=== PATIENT | male | born 1955 | race Caucasian/White ===

== ENCOUNTER 2016-09-27 15:56 | Outpatient (CLI) ==
[2016-09-27 17:11] LABS: PROTHROMBIN TIME 39.5 SEC (9.3-11.0)
== END 2016-09-27 15:57 | disposition home or self-care (01) ==
LOC: LAB 15:56
PROVIDERS: ATTEND General Practice
DX: Z51.81 Encounter for therapeutic drug level monitoring (principal); Z79.01 Long term (current) use of anticoagulants; I82.409 Acute embolism and thrombosis of unspecified deep veins of unspecified lower extremity; Z95.2 Presence of prosthetic heart valve; I35.0 Nonrheumatic aortic (valve) stenosis
CPT/HCPCS: 36415; 85610

== ENCOUNTER 2016-10-03 15:10 | Outpatient (CLI) ==
[2016-10-03 15:56] LABS: PROTHROMBIN TIME 54.9 SEC (9.3-11.0)
== END 2016-10-03 15:11 | disposition home or self-care (01) ==
LOC: LAB 15:10
PROVIDERS: ATTEND General Practice
DX: I35.0 Nonrheumatic aortic (valve) stenosis (principal); Z95.2 Presence of prosthetic heart valve
CPT/HCPCS: 36415; 85610

== ENCOUNTER 2016-10-05 14:41 | Outpatient (CLI) | payer OTHER ==
[2016-10-05 15:29] LABS: PROTHROMBIN TIME 26.6 SEC (9.3-11.0)
== END 2016-10-05 14:42 | disposition home or self-care (01) ==
LOC: LAB 14:41
PROVIDERS: ATTEND General Practice
DX: Z51.81 Encounter for therapeutic drug level monitoring (principal); Z79.01 Long term (current) use of anticoagulants; I82.409 Acute embolism and thrombosis of unspecified deep veins of unspecified lower extremity
CPT/HCPCS: 36415; 85610

== ENCOUNTER 2016-11-16 12:53 | Outpatient (CLI) | END 2016-11-16 12:54 | disposition home or self-care (01) | LOC: LAB 12:53 | PROVIDERS: ATTEND General Practice | DX: Z51.81 Encounter for therapeutic drug level monitoring (principal); Z79.01 Long term (current) use of anticoagulants; I82.409 Acute embolism and thrombosis of unspecified deep veins of unspecified lower extremity | CPT/HCPCS: 36415; 85610 ==

== ENCOUNTER 2016-11-22 16:22 | Outpatient (CLI) ==
[2016-11-22 17:14] LABS: PROTHROMBIN TIME 35.9 SEC (9.3-11.0)
== END 2016-11-22 16:23 | disposition home or self-care (01) ==
LOC: LAB 16:22
PROVIDERS: ATTEND General Practice
DX: Z51.81 Encounter for therapeutic drug level monitoring (principal); Z79.01 Long term (current) use of anticoagulants; I82.409 Acute embolism and thrombosis of unspecified deep veins of unspecified lower extremity
CPT/HCPCS: 36415; 85610

== ENCOUNTER 2017-01-23 12:18 | Outpatient (CLI) | payer OTHER ==
[2017-01-23 13:06] LABS: PROTHROMBIN TIME 34.5 SEC (9.3-11.0)
== END 2017-01-23 12:19 | disposition home or self-care (01) ==
LOC: LAB 12:18
PROVIDERS: ATTEND General Practice
DX: Z51.81 Encounter for therapeutic drug level monitoring (principal); Z79.01 Long term (current) use of anticoagulants
CPT/HCPCS: 36415; 85610

== ENCOUNTER 2017-03-17 14:03 | Outpatient (CLI) | END 2017-03-17 14:04 | disposition home or self-care (01) | LOC: LAB 14:03 | PROVIDERS: ATTEND General Practice | DX: Z95.2 Presence of prosthetic heart valve (principal) | CPT/HCPCS: 36415; 85610 ==

== ENCOUNTER 2017-04-27 15:15 | Outpatient (CLI) ==
[2017-04-27 15:31] LABS: BILIRUBIN,URINE 1+ (NEGATIVE); KETONES,URINE 1+ (NEGATIVE); LEUKOCYTE ESTERASE ,URINE Negative (NEGATIVE); NITRITE,URINE Negative (NEGATIVE); PROTEIN,URINE 1+ (NEGATIVE); URINE, BLOOD Trace-intact (NEGATIVE)
[2017-04-27 15:42] LABS: BASOPHILS % (AUTO) 0.6 % (0.0-3.0); EOSINOPHILS # (AUTO) 0.1 K/ul (0.0-0.7); EOSINOPHILS % (AUTO) 1.9 % (0.0-7.0); HEMATOCRIT 41.1 % (42.0-52.0); HEMOGLOBIN 15.3 g/dl (14.0-18.0); IMMATURE GRANULOCYTE % (AUTO) 0.4 % (0.0-5.0); LYMPHOCYTES # (AUTO) 1.7 K/uL (0.60-3.4); LYMPHOCYTES % (AUTO) 23.6 (10.0-50.0); MEAN CORPUSCULAR HEMOGLOBIN 33.6 pg (27.0-31.0); MEAN CORPUSCULAR HGB CONC 37.2 (31.8-35.4); MEAN CORPUSCULAR VOLUME 90.3 fl (80.0-94.0); MONOCYTES # (AUTO) 0.6 K/uL (0.4-2.0); MONOCYTES % (AUTO) 9.2 (0-10); NEUTROPHILS # (AUTO) 4.5 K/ul (2.0-6.9); NEUTROPHILS % (AUTO) 64.3; PLATELET COUNT 211 10^3/uL (140-440); RED BLOOD COUNT 4.55 10^6/ul (4.70-6.10); WHITE BLOOD COUNT 6.99 K/ul (4.2-10.2)
[2017-04-27 15:44] LABS: ADD URINE MICROSCOPIC YES
[2017-04-27 15:45] LABS: BACTERIA,URINE TRACE (NOT PRESENT)
[2017-04-27 15:49] LABS: ALBUMIN 3.8 g/dL (3.4-5.0); ALBUMIN/GLOBULIN RATIO 1.15; ANION GAP 12.9; BILIRUBIN,TOTAL 0.58 mg/dL (0.00-1.20); BUN/CREATININE RATIO 7.64; CALCIUM 9.4 mg/dL (8.2-10.2); CHOL/HDL RATIO 3.5 (4.5-6.4); CREATININE 1.57 mg/dL (0.60-1.10); POTASSIUM 2.9 mmol/L (3.5-5.1); TOTAL PROTEIN 7.1 g/dL (5.8-8.1)
[2017-04-27 16:00] LABS: PROTHROMBIN TIME 53.8 SEC (9.3-11.0)
== END 2017-04-27 15:16 | disposition home or self-care (01) ==
LOC: LAB 15:15
PROVIDERS: ATTEND General Practice
DX: E78.5 Hyperlipidemia, unspecified (principal); I35.0 Nonrheumatic aortic (valve) stenosis; Z95.2 Presence of prosthetic heart valve; Z72.0 Tobacco use; Z79.899 Other long term (current) drug therapy
CPT/HCPCS: 36415; 80053; 80061; 81001; 85025; 85610

== ENCOUNTER 2017-04-29 10:04 | Outpatient (CLI) ==
[2017-04-29 12:45] LABS: PROTHROMBIN TIME 58.8 SEC (9.3-11.0)
== END 2017-04-29 10:05 | disposition home or self-care (01) ==
LOC: LAB 10:04
PROVIDERS: ATTEND General Practice
DX: Z95.2 Presence of prosthetic heart valve (principal)
CPT/HCPCS: 36415; 85610

== ENCOUNTER 2017-05-01 14:17 | Outpatient (CLI) ==
[2017-05-01 15:06] LABS: PROTHROMBIN TIME 44.8 SEC (9.3-11.0)
== END 2017-05-01 14:18 | disposition home or self-care (01) ==
LOC: LAB 14:17
PROVIDERS: ATTEND General Practice
DX: Z95.2 Presence of prosthetic heart valve (principal)
CPT/HCPCS: 36415; 85610

== ENCOUNTER 2017-05-03 15:53 | Outpatient (CLI) ==
[2017-05-03 16:21] LABS: PROTHROMBIN TIME 15.1 SEC (9.3-11.0)
== END 2017-05-03 15:54 | disposition home or self-care (01) ==
LOC: LAB 15:53
PROVIDERS: ATTEND General Practice
DX: Z95.2 Presence of prosthetic heart valve (principal)
CPT/HCPCS: 36415; 85610

== ENCOUNTER 2017-05-10 19:48 | Outpatient (CLI) | payer OTHER ==
[2017-05-10 20:13] LABS: PROTHROMBIN TIME 23.2 SEC (9.3-11.0)
== END 2017-05-10 19:49 | disposition home or self-care (01) ==
LOC: LAB 19:48
PROVIDERS: ATTEND General Practice
DX: Z95.2 Presence of prosthetic heart valve (principal)
CPT/HCPCS: 36415; 85610

== ENCOUNTER 2017-05-24 10:21 | Outpatient (CLI) ==
[2017-05-24 11:06] LABS: PROTHROMBIN TIME 31.3 SEC (9.3-11.0)
== END 2017-05-24 10:22 | disposition home or self-care (01) ==
LOC: LAB 10:21
PROVIDERS: ATTEND General Practice
DX: Z95.2 Presence of prosthetic heart valve (principal)
CPT/HCPCS: 36415; 85610

== ENCOUNTER 2017-05-27 17:45 | Outpatient (CLI) | END 2017-05-27 17:46 | disposition home or self-care (01) | LOC: LAB 17:45 | PROVIDERS: ATTEND General Practice | DX: Z95.2 Presence of prosthetic heart valve (principal) | CPT/HCPCS: 36415; 85610 ==

== ENCOUNTER 2017-06-01 12:57 | Outpatient (CLI) ==
[2017-06-01 13:46] LABS: PROTHROMBIN TIME 17.9 SEC (9.3-11.0)
== END 2017-06-01 12:58 | disposition home or self-care (01) ==
LOC: LAB 12:57
PROVIDERS: ATTEND General Practice
DX: Z51.81 Encounter for therapeutic drug level monitoring (principal); Z79.01 Long term (current) use of anticoagulants; I82.409 Acute embolism and thrombosis of unspecified deep veins of unspecified lower extremity
CPT/HCPCS: 36415; 85610

== ENCOUNTER 2017-06-16 12:45 | Outpatient (CLI) ==
[2017-06-16 13:18] LABS: ALBUMIN 4.3 g/dL (3.4-5.0); ANION GAP 16.3; BUN/CREATININE RATIO 15.15; CALCIUM 10.1 mg/dL (8.2-10.2); CHOL/HDL RATIO 4.6 (4.5-6.4); CREATININE 0.99 mg/dL (0.60-1.10); PHOSPHORUS 3.4 mg/dL (2.3-3.7); POTASSIUM 3.3 mmol/L (3.5-5.1)
[2017-06-16 13:23] LABS: PROTHROMBIN TIME 32.3 SEC (9.3-11.0)
[2017-06-16 14:14] LABS: BILIRUBIN,URINE Negative (NEGATIVE); KETONES,URINE Negative (NEGATIVE); LEUKOCYTE ESTERASE ,URINE Negative (NEGATIVE); NITRITE,URINE Negative (NEGATIVE); PH,URINE 6.5 (5-9); PROTEIN,URINE Negative (NEGATIVE); URINE, BLOOD Trace-intact (NEGATIVE)
[2017-06-16 14:27] LABS: ADD URINE MICROSCOPIC YES
== END 2017-06-16 12:46 | disposition home or self-care (01) ==
LOC: LAB 12:45
PROVIDERS: ATTEND General Practice
DX: Z51.81 Encounter for therapeutic drug level monitoring (principal); Z79.01 Long term (current) use of anticoagulants; I82.409 Acute embolism and thrombosis of unspecified deep veins of unspecified lower extremity; R31.9 Hematuria, unspecified; E78.5 Hyperlipidemia, unspecified; E87.6 Hypokalemia
CPT/HCPCS: 36415; 80061; 80069; 81001; 85610

== ENCOUNTER 2017-06-21 16:01 | Outpatient (CLI) | payer OTHER ==
[2017-06-21 16:36] LABS: PROTHROMBIN TIME 38.1 SEC (9.3-11.0)
== END 2017-06-21 16:02 | disposition home or self-care (01) ==
LOC: LAB 16:01
PROVIDERS: ATTEND General Practice
DX: Z51.81 Encounter for therapeutic drug level monitoring (principal); Z79.01 Long term (current) use of anticoagulants; I82.409 Acute embolism and thrombosis of unspecified deep veins of unspecified lower extremity
CPT/HCPCS: 36415; 85610

== ENCOUNTER 2017-08-07 13:35 | Outpatient (CLI) ==
[2017-08-07 14:51] LABS: PROTHROMBIN TIME 65.1 SEC (9.3-11.0)
== END 2017-08-07 13:36 | disposition home or self-care (01) ==
LOC: LAB 13:35
PROVIDERS: ATTEND General Practice
DX: Z51.81 Encounter for therapeutic drug level monitoring (principal); Z79.01 Long term (current) use of anticoagulants; I82.409 Acute embolism and thrombosis of unspecified deep veins of unspecified lower extremity
CPT/HCPCS: 36415; 85610

== ENCOUNTER 2017-08-08 13:20 | Outpatient (CLI) ==
[2017-08-08 13:31] LABS: BASOPHILS % (AUTO) 0.3 % (0.0-3.0); EOSINOPHILS # (AUTO) 0.2 K/ul (0.0-0.7); EOSINOPHILS % (AUTO) 1.6 % (0.0-7.0); HEMOGLOBIN 13.9 g/dl (14.0-18.0); IMMATURE GRANULOCYTE % (AUTO) 0.5 % (0.0-5.0); LYMPHOCYTES # (AUTO) 1.4 K/uL (0.60-3.4); LYMPHOCYTES % (AUTO) 12.3 (10.0-50.0); MEAN CORPUSCULAR HGB CONC 35.6 (31.8-35.4); MEAN CORPUSCULAR VOLUME 95.4 fl (80.0-94.0); MONOCYTES % (AUTO) 8.5 (0-10); NEUTROPHILS # (AUTO) 8.6 K/ul (2.0-6.9); NEUTROPHILS % (AUTO) 76.8; PLATELET COUNT 249 10^3/uL (140-440); RED BLOOD COUNT 4.09 10^6/ul (4.70-6.10); WHITE BLOOD COUNT 11.18 K/ul (4.2-10.2)
== END 2017-08-08 13:21 | disposition home or self-care (01) ==
LOC: LAB 13:20
PROVIDERS: ATTEND Emergency Medicine
DX: M54.5 Low back pain (principal); I35.0 Nonrheumatic aortic (valve) stenosis
CPT/HCPCS: 36415; 85025

== ENCOUNTER 2017-08-30 12:47 | Outpatient (CLI) | payer OTHER ==
[2017-08-30 13:07] LABS: PROTHROMBIN TIME 38.2 SEC (9.3-11.0)
== END 2017-08-30 12:48 | disposition home or self-care (01) ==
LOC: LAB 12:47
PROVIDERS: ATTEND General Practice
DX: Z51.81 Encounter for therapeutic drug level monitoring (principal); Z79.01 Long term (current) use of anticoagulants; I82.409 Acute embolism and thrombosis of unspecified deep veins of unspecified lower extremity
CPT/HCPCS: 36415; 85610

== ENCOUNTER 2017-09-13 10:31 | Outpatient (CLI) ==
[2017-09-13 12:32] LABS: PROTHROMBIN TIME 40.1 SEC (9.3-11.0)
== END 2017-09-13 10:32 | disposition home or self-care (01) ==
LOC: LAB 10:31
PROVIDERS: ATTEND General Practice
DX: Z51.81 Encounter for therapeutic drug level monitoring (principal); Z79.01 Long term (current) use of anticoagulants; I82.409 Acute embolism and thrombosis of unspecified deep veins of unspecified lower extremity
CPT/HCPCS: 36415; 85610

== ENCOUNTER 2017-09-16 09:50 | Outpatient (CLI) | END 2017-09-16 09:51 | disposition home or self-care (01) | LOC: LAB 09:50 | PROVIDERS: ATTEND General Practice | DX: Z79.899 Other long term (current) drug therapy (principal); Z95.2 Presence of prosthetic heart valve | CPT/HCPCS: 36415; 85025 ==

== ENCOUNTER 2017-10-10 16:47 | Outpatient (CLI) ==
--- NOTE | 2017-10-10 22:13 | DI ---
EXAM: PA and lateral views of the chest. HISTORY: Other specified symptoms and signs involving the circulatory and respiratory systems. FINDINGS: There are multiple sternotomy wires. The cardiac silhouette and pulmonary vasculature are within normal limits. The costophrenic angles are clear. No infiltrate or consolidation. There are calcified granulomas. Impression: No acute cardiopulmonary disease.
--- NOTE | 2017-10-10 22:32 | DI ---
EXAM: Two views of the right hip. HISTORY: Pain in right hip. No history of trauma. FINDINGS: The bones are intact with no evidence of fracture. There is a 2.3 cm calcification project ing over the symphysis pubis. The joint spaces are maintained. Impression: Negative right hip.
== END 2017-10-10 16:48 | disposition home or self-care (01) ==
LOC: RAD 16:47
PROVIDERS: ATTEND General Practice
DX: R09.89 Other specified symptoms and signs involving the circulatory and respiratory systems (principal); M25.551 Pain in right hip

== ENCOUNTER 2017-11-07 15:24 | Outpatient (CLI) | payer OTHER | END 2017-11-07 15:25 | disposition home or self-care (01) | LOC: LAB 15:24 | PROVIDERS: ATTEND General Practice | DX: Z51.81 Encounter for therapeutic drug level monitoring (principal); Z79.01 Long term (current) use of anticoagulants; I82.409 Acute embolism and thrombosis of unspecified deep veins of unspecified lower extremity | CPT/HCPCS: 36415; 85610 ==

== ENCOUNTER 2017-11-10 11:13 | Outpatient (CLI) | END 2017-11-10 11:14 | disposition home or self-care (01) | LOC: FCC-LAB 11:13 | PROVIDERS: ATTEND General Practice | DX: E78.5 Hyperlipidemia, unspecified (principal); I35.0 Nonrheumatic aortic (valve) stenosis; Z72.0 Tobacco use; Z79.899 Other long term (current) drug therapy; Z95.2 Presence of prosthetic heart valve | CPT/HCPCS: 36415; 80053; 80061; 81001; 85025; 85610 ==

== ENCOUNTER 2017-11-13 13:57 | Outpatient (CLI) | END 2017-11-13 13:58 | disposition home or self-care (01) | LOC: LAB 13:57 | PROVIDERS: ATTEND General Practice | DX: Z51.81 Encounter for therapeutic drug level monitoring (principal); Z79.01 Long term (current) use of anticoagulants; I82.409 Acute embolism and thrombosis of unspecified deep veins of unspecified lower extremity | CPT/HCPCS: 36415; 85610 ==

== ENCOUNTER 2017-11-20 10:17 | Outpatient (CLI) | END 2017-11-20 10:18 | disposition home or self-care (01) | LOC: LAB 10:17 | PROVIDERS: ATTEND General Practice | DX: Z51.81 Encounter for therapeutic drug level monitoring (principal); Z79.01 Long term (current) use of anticoagulants; I82.409 Acute embolism and thrombosis of unspecified deep veins of unspecified lower extremity | CPT/HCPCS: 36415; 85610 ==

== ENCOUNTER 2017-11-28 12:20 | Outpatient (CLI) | END 2017-11-28 12:21 | disposition home or self-care (01) | LOC: LAB 12:20 | PROVIDERS: ATTEND General Practice | DX: Z51.81 Encounter for therapeutic drug level monitoring (principal); Z79.01 Long term (current) use of anticoagulants; I82.409 Acute embolism and thrombosis of unspecified deep veins of unspecified lower extremity | CPT/HCPCS: 36415; 85610 ==

== ENCOUNTER 2017-12-12 16:27 | Outpatient (CLI) | END 2017-12-12 16:28 | disposition home or self-care (01) | LOC: FCC-LAB 16:27 | PROVIDERS: ATTEND General Practice | DX: E87.6 Hypokalemia (principal); Z95.2 Presence of prosthetic heart valve | CPT/HCPCS: 36415; 80069; 85610 ==

== ENCOUNTER 2017-12-18 14:13 | Outpatient (CLI) | END 2017-12-18 14:14 | disposition home or self-care (01) | LOC: LAB 14:13 | PROVIDERS: ATTEND General Practice | DX: Z95.2 Presence of prosthetic heart valve (principal) | CPT/HCPCS: 36415; 85610 ==

== ENCOUNTER 2017-12-26 13:18 | Outpatient (CLI) | END 2017-12-26 13:19 | disposition home or self-care (01) | LOC: LAB 13:18 | PROVIDERS: ATTEND General Practice | DX: E78.5 Hyperlipidemia, unspecified (principal); I35.0 Nonrheumatic aortic (valve) stenosis; Z79.01 Long term (current) use of anticoagulants; Z79.899 Other long term (current) drug therapy; Z95.2 Presence of prosthetic heart valve; Z12.5 Encounter for screening for malignant neoplasm of prostate; Z72.0 Tobacco use | CPT/HCPCS: 36415; 80053; 80061; 81001; 85025 ==

== ENCOUNTER 2018-01-01 15:52 | Outpatient (CLI) | payer OTHER | END 2018-01-01 15:53 | disposition home or self-care (01) | LOC: LAB 15:52 | PROVIDERS: ATTEND General Practice | DX: Z95.2 Presence of prosthetic heart valve (principal) | CPT/HCPCS: 36415; 85610 ==

== ENCOUNTER 2018-01-09 10:42 | Outpatient (CLI) | END 2018-01-09 10:43 | disposition home or self-care (01) | LOC: LAB 10:42 | PROVIDERS: ATTEND General Practice | DX: Z95.2 Presence of prosthetic heart valve (principal) | CPT/HCPCS: 36415; 85610 ==

== ENCOUNTER 2018-01-15 09:41 | Outpatient (CLI) | END 2018-01-15 09:42 | disposition home or self-care (01) | LOC: FCC-LAB 09:41 | PROVIDERS: ATTEND General Practice | DX: Z95.2 Presence of prosthetic heart valve (principal); Z79.899 Other long term (current) drug therapy | CPT/HCPCS: 36415; 80306; 85610 ==

== ENCOUNTER 2018-04-05 14:28 | Outpatient (CLI) | payer OTHER | END 2018-04-05 14:29 | disposition home or self-care (01) | LOC: FCC-LAB 14:28 | PROVIDERS: ATTEND General Practice | DX: Z95.2 Presence of prosthetic heart valve (principal) | CPT/HCPCS: 36415; 85610 ==

== ENCOUNTER 2018-04-07 16:39 | Outpatient (CLI) | END 2018-04-07 16:40 | disposition home or self-care (01) | LOC: LAB 16:39 | PROVIDERS: ATTEND General Practice | DX: Z95.2 Presence of prosthetic heart valve (principal) | CPT/HCPCS: 36415; 85610 ==

== ENCOUNTER 2018-04-10 11:01 | Outpatient (CLI) | END 2018-04-10 11:02 | disposition home or self-care (01) | LOC: LAB 11:01 | PROVIDERS: ATTEND General Practice | DX: Z95.2 Presence of prosthetic heart valve (principal) | CPT/HCPCS: 36415; 85610 ==

== ENCOUNTER 2018-04-16 14:49 | Outpatient (CLI) | END 2018-04-16 14:50 | disposition home or self-care (01) | LOC: FCC-LAB 14:49 | PROVIDERS: ATTEND General Practice | DX: Z95.2 Presence of prosthetic heart valve (principal) | CPT/HCPCS: 36415; 85610 ==

== ENCOUNTER 2018-06-11 14:43 | Outpatient (CLI) ==
--- NOTE | 2018-06-12 08:00 | DI ---
EXAM: PA and lateral views of the chest HISTORY: Cough. COMPARISON: Chest x-ray 10/10/2017 FINDINGS: The cardiomediastinal silhouette is unchanged with intact sternotomy wires. There is no p neumothorax or pleural effusion. There is no consolidation, nodule or mass. The osseous structures demonstrate multilevel degenerative disease. IMPRESSION: 1. No acute cardiopulmonary process or consolidation. 2. No significant interval change.
== END 2018-06-11 14:44 | disposition home or self-care (01) ==
LOC: LAB 14:43
PROVIDERS: ATTEND General Practice
DX: R05 Cough (principal); Z95.2 Presence of prosthetic heart valve
CPT/HCPCS: 36415; 85610

== ENCOUNTER 2018-10-16 11:51 | Outpatient (CLI) | END 2018-10-16 11:52 | disposition home or self-care (01) | LOC: RHC-LAB 11:51 | PROVIDERS: ATTEND General Practice | DX: I35.0 Nonrheumatic aortic (valve) stenosis (principal); E78.5 Hyperlipidemia, unspecified; M54.5 Low back pain; Z95.2 Presence of prosthetic heart valve; Z79.899 Other long term (current) drug therapy | CPT/HCPCS: 36415; 80053; 80061; 81001; 83036; 84443; 85025; 85610 ==

== ENCOUNTER 2018-12-19 16:19 | Outpatient (CLI) | payer OTHER | END 2018-12-19 16:20 | disposition home or self-care (01) | LOC: RHC-LAB 16:19 | PROVIDERS: ATTEND General Practice | DX: Z79.899 Other long term (current) drug therapy (principal); R19.06 Epigastric swelling, mass or lump | CPT/HCPCS: 80306 ==

== ENCOUNTER 2018-12-19 16:31 | Outpatient (CLI) | payer OTHER ==
--- NOTE | 2018-12-19 17:24 | US ---
EXAM: Ultrasound abdomen complete. HISTORY: Abdominal swelling with lump in the left upper quadrant TECHNIQUE: Ultrasound and limited doppler evaluation of the enitre abdomen was performed. Dedicated views of the area of concern COMPARISON: Abdominal ultrasound same day FINDINGS: The liver is mildly heterogeneous in echogenicity and measures 9.4 cm in length. The raymon l vein is patent. The gallbladder demonstrates no stones or sludge. Gallbladder wall measures 0.2 c m. Common bile duct measures 0.6 cm in diameter. The pancreas is unremarkable. The aorta and IVC a re poorly visualized due to bowel gas. The spleen is normal in echogenicity and measures 9.3 cm in l ength. The right kidney measures 9.2 x 3.9 x 3.6 cm with cortical thickness of 0.8 cm. There is normal echo genicity and Doppler flow. There is no visualized stone, cyst or hydronephrosis. The left kidney measures 9.6 x 3.8 x 4.4 cm with renal cortical thickness of 1.0 cm. There is gladys l echogenicity and color Doppler flow. There is no stone, cyst or hydronephrosis. The urinary bladder is obscured due to bowel gas. The palpable area in the left upper quadrant demonstrated no visualized mass or abnormality. IMPRESSION: 1. No visualized mass in the area of concern. 2. No additional sonographic abnormality.
--- NOTE | 2018-12-20 13:05 | US ---
PRELIMINARY Please see same day report from accession number [id number]
== END 2018-12-19 16:32 | disposition home or self-care (01) ==
LOC: RAD 16:31
PROVIDERS: ATTEND General Practice
DX: R19.06 Epigastric swelling, mass or lump (principal)

== ENCOUNTER 2019-01-31 14:37 | Outpatient (CLI) | END 2019-01-31 14:38 | disposition home or self-care (01) | LOC: RHC-LAB 14:37 | PROVIDERS: ATTEND General Practice | DX: Z95.2 Presence of prosthetic heart valve (principal); Z79.899 Other long term (current) drug therapy | CPT/HCPCS: 36415; 85610 ==

== ENCOUNTER 2019-02-08 14:27 | Outpatient (CLI) | END 2019-02-08 14:28 | disposition home or self-care (01) | LOC: LAB 14:27 | PROVIDERS: ATTEND General Practice | DX: Z51.81 Encounter for therapeutic drug level monitoring (principal); Z79.01 Long term (current) use of anticoagulants | CPT/HCPCS: 36415; 85610 ==

== ENCOUNTER 2019-02-21 15:13 | Outpatient (CLI) | payer OTHER | END 2019-02-21 15:14 | disposition home or self-care (01) | LOC: RHC-LAB 15:13 | PROVIDERS: ATTEND General Practice | DX: Z95.2 Presence of prosthetic heart valve (principal) | CPT/HCPCS: 36415; 85610 ==

== ENCOUNTER 2019-05-28 11:40 | Outpatient (CLI) | END 2019-05-28 11:41 | disposition home or self-care (01) | LOC: LAB 11:40 | PROVIDERS: ATTEND General Practice | DX: E78.5 Hyperlipidemia, unspecified (principal); Z79.899 Other long term (current) drug therapy; Z95.2 Presence of prosthetic heart valve; I35.0 Nonrheumatic aortic (valve) stenosis | CPT/HCPCS: 36415; 80053; 80061; 80306; 81001; 85025; 85610 ==